=== PATIENT | female | born 1995 | race African-American/Black ===

== ENCOUNTER 2016-10-14 16:23 | Emergency (ER) | payer OTHER ==
[~2016-10-14] VITALS: Ht 170.2 cm; Wt 71.7 kg
[2016-10-14 16:40] LABS: URINE BILIRUBIN NEGATIVE (Negative); URINE BLOOD NEGATIVE (Negative); URINE COLOR YELLOW; URINE GLUCOSE-RANDOM* NEGATIVE (Negative); URINE KETONES NEGATIVE (Negative); URINE NITRITE NEGATIVE (Negative); URINE PROTEIN (DIPSTICK) TRACE (Negative)
[2016-10-14 17:30] VITALS: BP 115/68
== END 2016-10-14 17:30 | disposition home or self-care (01) ==
LOC: ER 16:23
PROVIDERS: Nurse Practitioner Family
DX: O21.9 Vomiting of pregnancy, unspecified (principal); O26.891 Other specified pregnancy related conditions, first trimester; N94.89 Other specified conditions associated with female genital organs and menstrual cycle

== ENCOUNTER 2017-02-07 16:31 | Emergency (ER) | payer OTHER ==
[~2017-02-07] VITALS: Ht 170.2 cm; Wt 70.3 kg
[2017-02-07 16:39] VITALS: BP 114/67
[2017-02-07 17:08] LABS: CALCIUM 8.8 mg/dL (8.5-10.1); CREATININE 0.7 mg/dL (0.6-1.0); POTASSIUM 3.9 mmol/L (3.5-5.1)
[2017-02-07 17:11] LABS: ABSOLUTE NEUTROPHILS 11.1 thou/uL (1.4-8.2); BASOPHILS 0.4 % (0.0-2.0); EOSINOPHILS 1.1 % (0.0-3.0); HEMATOCRIT 35.7 % (37.0-47.0); MANUAL DIFF NO; MCH 29.2 pg (26.0-34.0); MCHC 33.5 g/dL (28.0-37.0); MONOCYTES 6.3 % (1.0-8.0); PLATELET COUNT 221 thou/uL (150-400); POLYS 73.2 % (36.0-66.0); RDW 14.2 % (10.5-14.5); WBC 15.1 thou/uL (4.0-11.0)
[2017-02-07 17:14] LABS: ALBUMIN 3.3 g/dL (3.4-5.0); TOTAL BILIRUBIN 0.1 mg/dL (<0.1-1.0); TOTAL PROTEIN 7.5 g/dL (6.4-8.2)
[2017-02-07 17:16] LABS: URINE BILIRUBIN NEGATIVE (Negative); URINE BLOOD NEGATIVE (Negative); URINE COLOR YELLOW; URINE GLUCOSE-RANDOM* NEGATIVE (Negative); URINE KETONES NEGATIVE (Negative); URINE NITRITE NEGATIVE (Negative); URINE PROTEIN (DIPSTICK) NEGATIVE (Negative); URINE SPECIFIC GRAVITY 1.025 (1.003-1.035); URINE UROBILINOGEN 0.2 E.U./dl (0.2-1.0)
== END 2017-02-07 18:45 | disposition home or self-care (01) ==
LOC: ER 16:31
PROVIDERS: Nurse Practitioner Family
DX: O26.892 Other specified pregnancy related conditions, second trimester (principal); R10.2 Pelvic and perineal pain; R07.89 Other chest pain; D72.828 Other elevated white blood cell count; Z3A.24 24 weeks gestation of pregnancy